=== PATIENT | female | born 1980 | race Asian ===

== ENCOUNTER 2016-12-05 07:30 | Inpatient (IN) | payer OTHER ==
[2016-12-05 09:02] VITALS: BMI 33.5
[2016-12-05] MEDS ORDERED: TUBERCULIN PPD 5 TU/0.1ML SYRINGE (IN PATIENT USE ONLY) ID ONE (10:00)
[2016-12-05] MEDS ORDERED: oxyCODONE HCL 5 MG TABLET PO PRN (10:12)
[2016-12-05] MEDS ORDERED: METHYLERGONOVINE MALEATE 0.2 MG/1 ML AMP IM PRN (10:12)
[2016-12-05] MEDS ORDERED: OXYTOCIN 20 UNITS in 0.9% NS 1,000 ML IV SCH (10:15)
[2016-12-05] MEDS ORDERED: ELECTROLYTE-148 SOLN 1,000 ML IV SCH (10:15)
--- NOTE | 2016-12-05 10:30 | HP ---
Past Medical History - Admission Chief Complaint: Previous Section x 3 History of Present Illness: 36 yo EDC 11/26 EGA 39 weeks for repeat Section and tubal sterilization History Source: Patient - Past Medical History ...: 4 ...Para: 3 ...Term: 3 ...: 0 ...Spon : 0 ...Induced : 0 ...Multiple Gestation: 0 ...LMP: 03/29/16 ... Weeks Gestation by Dates: 35.5 ...EDC by Dates: 01/03/17 ...EDC by Sono: 12/11/16 - Past Surgical History Past Surgical History: Yes: Hx Myomectomy: No Hx Transabdominal Cerclage: No - Smoking History Smoking history: Never smoked Have you smoked in the past 12 months: No - Alcohol/Substance Use Hx Alcohol Use: No History of Substance Use: reports: None - Social History Usual Living Arrangement: Yes: With Spouse History of Recent Travel: No Home Medications - Allergies Allergies/Adverse Reactions: Allergies Allergy/AdvReac Type Severity Reaction Status Date / Time No Known Allergies Allergy Verified 12/05/16 09:08 - Home Medications Home Medications: Ambulatory Orders Vit/Iron Fumarate/FA [ Tablet] 1 tab PO DAILY 12/05/16 Ibuprofen [Motrin -] 600 mg PO QID PRN #28 tablet 12/07/16 Review of Systems - Review of Systems Constitutional: reports: No Symptoms Eyes: reports: No Symptoms HENT: reports: No Symptoms Neck: reports: No Symptoms Cardiovascular: reports: No Symptoms Respiratory: reports: No Symptoms Gastrointestinal: reports: No Symptoms Genitourinary: reports: No Symptoms Breasts: reports: No Symptoms Reported Musculoskeletal: reports: No Symptoms Integumentary: reports: No Symptoms Neurological: reports: No Symptoms Endocrine: reports: No Symptoms Hematology/Lymphatic: reports: No Symptoms Psychiatric: reports: No Symptoms Physical Exam - Maternity Vital Signs: Vital Signs Temperature 98.2 F 12/05/16 07:30 Pulse Rate 78 12/05/16 07:30 Respiratory Rate 18 12/05/16 07:30 Blood Pressure 119/76 12/05/16 07:30 O2 Sat by Pulse Oximetry (%) Constitutional: Yes: Well Nourished, No Distress Cardiovascular: Yes: WNL, Regular Rate and Rhythm Lungs: Clear to auscultation Breast(s): Yes: WNL - Abdominal Exam/OB Fundal Height: 40 Number of Fetuses: Single Presentation: Vertex Contractions: No Monitor Mode: External Heart Rate (range): 150 Category: I Accelerations: Non-Uniform Decelerations: None - Vaginal Exam/OB Dilatation (cm): closed Amniotic Membrane Status: Intact Presentation: Vertex/Position - Physical Exam Musculoskeletal: Yes: WNL Extremities: Yes: WNL Edema: No Integumentary: Yes: WNL Psychiatric: Yes: WNL, Alert, Oriented Hemorrhage Risk Assessment - Risk Factors Medium Risk Factors: Yes: Prior , uterine surgery,or multiple laparotomies Risk Score: 1 Risk Level: Medium Risk Assessment/Plan Prev CS x 3 IUP at 39 week Voluntary Sterilization Plan Repeat bilateral salpingectomy
[2016-12-05] MEDS ORDERED: ONDANSETRON 4 MG/2 ML VIAL IVPUSH PRN (11:40)
[2016-12-05] MEDS ORDERED: morphine SULFATE/Preservative Free 0.5 MG/ML (1cc Syringe) SPIN ONE (11:40)
[2016-12-05] MEDS ORDERED: PROMETHAZINE HCL 25 MG/1 ML VIAL IVPUSH PRN (12:22)
[2016-12-05 12:23] LABS: ARTERIAL BLD GAS O2 SATURATION 42.3 % (90-98.9); ARTERIAL BLOOD GAS BASE EXCESS -0.5 meq/l (-2-2); ARTERIAL BLOOD GAS HCO3 26.4 meq/L (22-26); ARTERIAL BLOOD GAS PO2 22.1 mmHg (80-100); ARTERIAL BLOOD GAS pH 7.31 (7.35-7.45)
[2016-12-05 12:25] LABS: ON ANTICOAG? CORD BLOOD; TYPE OF O2 ROOM AIR 21%
[2016-12-05 12:27] LABS: PT'S TEMP ARTERIAL
[2016-12-05 12:28] LABS: VENOUS PH 7.38 (7.32-7.42)
[2016-12-05 12:29] LABS: VENOUS BLOOD GAS HCO3 23.4 meq/L (19-25)
--- NOTE | 2016-12-05 12:39 | OP ---
DATE OF OPERATION: 12/05/2016 PREOPERATIVE DIAGNOSES: 1. Previous section. 2. Intrauterine at 39 weeks. 3. Voluntary sterilization. POSTOPERATIVE DIAGNOSIS: Live female . OPERATION: Repeat section and bilateral salpingectomy. SURGEON: Rosalina Thurman MD [employer]IGHWAY TRUCK DRIVER: GRANT Medina ( unavailable) ANESTHESIOLOGIST: Faustino Hernández M.D. ANESTHESIA: Spinal. ESTIMATED BLOOD LOSS: 600 mL. FINDINGS: Live female delivered in OP position. Normal tubes and ovaries. DESCRIPTION OF PROCEDURE: The patient was taken to the operating room, placed in the supine position, prepped and draped in the usual sterile fashion. A time-out was performed in accordance with hospital regulation. A scalpel was then used to make a Pfannenstiel skin incision through the patient's previous scar. Cautery was then used to go through the layers of the abdominal wall to the level of the fascia. The fascia was cut in the midline and cautery was then used to open the fascia in a smiling fashion. Jesus was then used to bluntly and sharply dissect the rectus muscle and the fascia. The muscle was splint in the midline. The peritoneal cavity was then entered and carried upward and downward. A bladder retractor was then placed. The vesicouterine reflection was then entered. The bladder was bluntly dissected out of the operative field. A scalpel was then used to make a low transverse uterine incision. The incision was carried upwards using bandage scissors. A live female infant was delivered in OT position. Nose and mouth suction was performed. The shoulders were delivered without difficulty. The cord was clamped and cut. Cord blood obtained. The placenta was manually extracted from the uterus. The uterus was exteriorized and cleaned with clean lap pads. The uterine incision was then closed using 0 Biosyn suture, the first layer continuous interlocking and the second layer imbricating the first layer. Hemostasis was achieved. The tubes were bilaterally grasped with Babcocks and LigaSure was then used to perform a salpingectomy. The ovaries were noted to be normal. The tube specimens were submitted to Pathology. The uterus was interiorized. The abdominal cavity was cleaned with clean lap pads. After abdominal sweep done, the peritoneum was closed using 0 Biosyn suture. The muscle was approximated in the midline using 0 Biosyn suture. The fascia was then closed using 0 Vicryl suture in 2 parts. The subcutaneous was closed using interrupted 0 Biosyn suture. The skin was then closed using 3-0 Vicryl in subcuticular fashion. The wound was washed and dressed. The patient tolerated the procedure well and was taken to the recovery room in stable condition. Usha [id number]
--- NOTE | 2016-12-05 18:33 | OP ---
Operative Note - Note: Operative Date: 12/05/16 Pre-Operative Diagnosis: prev CS x 3. voluntary sterilization Operation: Repeat Section. bilateral salpingectomy Findings: Live femaleinfant Post-Operative Diagnosis: Same as Pre-op Surgeon: Rosalina Thurman Firmware Architect: Jered Dickinson Anesthesiologist/BUSINESS FUNCTIONAL ANALYST: Faustino Hernández Anesthesia: Spinal Estimated Blood Loss (mls): 600 Operative Report Dictated: Yes
[2016-12-05] MEDS: SIMETHICONE 80 MG TAB.CHEW (FP) PO PRN (21:03)
[2016-12-06] MEDS: IBUPROFEN 600 MG TABLET (FP) PO PRN ×4 (00:34→20:39)
[2016-12-06] MEDS: ACETAMINOPHEN 325 MG TABLET (FP) PO PRN (00:35)
--- NOTE | 2016-12-06 06:45 | PN ---
Progress Note (SOAP) - Subjective Chief Complaint: Pt doing well - Current Medications Current Medications: Active Medications Acetaminophen (Tylenol -) 650 mg PO Q4H PRN PRN Reason: FEVER OR PAIN Last Admin: 12/06/16 00:35 Dose: 650 mg Bisacodyl (Dulcolax Suppository -) 10 mg RC PRN PRN PRN Reason: CONSTIPATION Diphenhydramine HCl (Benadryl Injection -) 25 mg IVPUSH Q4H PRN PRN Reason: Pruritis Enoxaparin Sodium (Lovenox -) 40 mg SQ DAILY [facility] Parenteral Electrolytes (Plasma-Lyte 148 -) 1,000 mls @ 125 mls/hr IV ASDIR MOOSE Last Admin: 12/05/16 08:00 Dose: 125 mls/hr Oxytocin/Sodium Chloride (Normal Saline+20 Units Oxytocin -) 1,000 mls @ 125 mls/hr IV ASDIR MOOSE Last Admin: 12/05/16 12:54 Dose: 125 mls/hr Ibuprofen (Motrin -) 600 mg PO Q4H PRN PRN Reason: PAIN Last Admin: 12/06/16 00:34 Dose: 600 mg Methylergonovine Maleate (Methergine Injection -) 0.2 mg IM Q4H PRN PRN Reason: Excessive Bleeding (L&D) Oxycodone HCl (Roxicodone -) 5 mg PO Q4H PRN PRN Reason: PAIN LEVEL 1-5 Oxycodone HCl (Roxicodone -) 10 mg PO Q4H PRN PRN Reason: PAIN LEVEL 6-10 Promethazine HCl (Phenergan Injection -) 12.5 mg IVPUSH Q4H PRN PRN Reason: NAUSEA AND/OR VOMITING Last Admin: 12/05/16 13:08 Dose: 12.5 mg Simethicone (Mylicon -) 80 mg PO Q4H PRN PRN Reason: GAS Last Admin: 12/05/16 21:03 Dose: 80 mg - Objective Vital Signs: Vital Signs Temperature 97.8 F 12/06/16 05:00 Pulse Rate 69 12/06/16 05:00 Respiratory Rate 18 12/06/16 06:00 Blood Pressure 96/53 12/06/16 05:00 O2 Sat by Pulse Oximetry (%) 98 12/05/16 21:00 Constitutional: Yes: Well Nourished, No Distress Gastrointestinal: Yes: WNL ....Post : Yes: Uterus firm, Uterus non-tender Edema: No Wound/Incision: Yes: Clean/Dry, Well Approximated, Steri Strips, Open to air Problem List - Problems (1) delivery delivered Code(s): O82 - ENCOUNTER FOR DELIVERY WITHOUT INDICATION Assessment/Plan pod 1 stable Plan oob percocet
--- NOTE | 2016-12-06 08:30 | PN ---
Progress Note (short form) - Note Progress Note: Post op day#1.S/P C Section under spinal anesthesia with duramorph uneventful.Patient stable and c/p lttle pain for which she is on medication.No any anesthesia related problem.Patient DC from the anesthesia care.
[2016-12-06] MEDS: SIMETHICONE 80 MG TAB.CHEW (FP) PO PRN ×3 (09:13→20:38)
[2016-12-06] MEDS: oxyCODONE HCL 5 MG TABLET PO PRN ×3 (09:13→20:38)
[2016-12-06] MEDS: ENOXAPARIN NA (PORCINE) 40 MG/0.4 ML DISP.SYRIN SQ SCH (09:15)
[2016-12-06 09:41] LABS: BASOPHIL 0.2 % (0-2.0); EOSINOPHIL 0.4 % (0-4.5); MCH 32.2 pg (25.7-33.7); MCHC 34.2 g/dl (32.0-36.0); MEAN CELL VOLUME 94.2 fl (80-96); MEAN PLT VOLUME 9.3 fl (7.5-11.1); NEUTROPHILS 85.8 % (42.8-82.8); PLATELET COUNT 147 K/MM3 (134-434); RDW 14.3 % (11.6-15.6); WHITE BLOOD COUNT 11.6 K/mm3 (4.0-10.0)
[2016-12-06] MEDS ORDERED: BISACODYL 10 MG SUPP.RECT RC PRN (10:12)
[2016-12-07] MEDS: SIMETHICONE 80 MG TAB.CHEW (FP) PO PRN ×4 (05:53→22:07)
[2016-12-07] MEDS: oxyCODONE HCL 5 MG TABLET PO PRN ×2 (05:53→12:14)
[2016-12-07] MEDS: ACETAMINOPHEN 325 MG TABLET (FP) PO PRN ×3 (05:54→22:07)
[2016-12-07] MEDS: IBUPROFEN 600 MG TABLET (FP) PO PRN ×4 (05:55→22:09)
--- NOTE | 2016-12-07 08:18 | PN ---
Post Progress Note - Subjective Subjective: PPD 2 Type of Delivery: Repeat C/S Vital Signs: Vital Signs Temperature 99.0 F 12/06/16 22:00 Pulse Rate 85 12/06/16 22:00 Respiratory Rate 20 12/06/16 22:00 Blood Pressure 116/65 12/06/16 22:00 O2 Sat by Pulse Oximetry (%) 98 12/05/16 21:00 Breast Exam: Yes: Soft Uterus: Yes: Fundus Firm Incision: Yes: Dressing dry and intact Abdomen/GI: Yes: Abdomen soft Lochia: Yes: Rubra Lochia, amount: Moderate Extremities: Yes: Calves non-tender Activity: Ambulating - Labs Labs: CBC WBC 11.6 K/mm3 (4.0-10.0) H D 12/06/16 09:25 RBC 3.27 M/mm3 (3.60-5.2) L 12/06/16 09:25 Hgb 10.5 GM/dL (10.7-15.3) L D 12/06/16 09:25 Hct 30.8 % (32.4-45.2) L 12/06/16 09:25 MCV 94.2 fl (80-96) 12/06/16 09:25 MCH 32.2 pg (25.7-33.7) 12/06/16 09:25 MCHC 34.2 g/dl (32.0-36.0) 12/06/16 09:25 RDW 14.3 % (11.6-15.6) 12/06/16 09:25 Plt Count 147 K/MM3 (134-434) 12/06/16 09:25 MPV 9.3 fl (7.5-11.1) 12/06/16 09:25 Neutrophils % 85.8 % (42.8-82.8) H D 12/06/16 09:25 Lymphocytes % 8.8 % (8-40) D 12/06/16 09:25 Monocytes % 4.8 % (3.8-10.2) 12/06/16 09:25 Eosinophils % 0.4 % (0-4.5) 12/06/16 09:25 Basophils % 0.2 % (0-2.0) 12/06/16 09:25 Assessment/Plan s/p c/s POD 2 condition stable continue post op care
[2016-12-07] MEDS: ENOXAPARIN NA (PORCINE) 40 MG/0.4 ML DISP.SYRIN SQ SCH (09:50)
[2016-12-08] MEDS ORDERED: SENNOSIDES/DOCUSATE COMBO (SENNA PLUS) TABLET (UD) PO PRN (07:10)
[2016-12-08 09:14] LABS: BASOPHIL 0.4 % (0-2.0); EOSINOPHIL 1.9 % (0-4.5); MCH 32.3 pg (25.7-33.7); MCHC 33.9 g/dl (32.0-36.0); MEAN CELL VOLUME 95.4 fl (80-96); MEAN PLT VOLUME 9.3 fl (7.5-11.1); PLATELET COUNT 164 K/MM3 (134-434); RDW 14.4 % (11.6-15.6); WHITE BLOOD COUNT 6.3 K/mm3 (4.0-10.0)
[2016-12-08] MEDS: ENOXAPARIN NA (PORCINE) 40 MG/0.4 ML DISP.SYRIN SQ SCH (09:31)
[2016-12-08] MEDS: ACETAMINOPHEN 325 MG TABLET (FP) PO PRN ×2 (09:31→20:31)
[2016-12-08] MEDS: IBUPROFEN 600 MG TABLET (FP) PO PRN ×2 (09:32→20:30)
[2016-12-08] MEDS: SIMETHICONE 80 MG TAB.CHEW (FP) PO PRN ×2 (09:33→20:29)
--- NOTE | 2016-12-08 11:19 | PN ---
Progress Note (SOAP) - Subjective Chief Complaint: Pt doing well - Current Medications Current Medications: Active Medications Acetaminophen (Tylenol -) 650 mg PO Q4H PRN PRN Reason: FEVER OR PAIN Last Admin: 12/08/16 09:31 Dose: 650 mg Bisacodyl (Dulcolax Suppository -) 10 mg RC PRN PRN PRN Reason: CONSTIPATION Diphenhydramine HCl (Benadryl Injection -) 25 mg IVPUSH Q4H PRN PRN Reason: Pruritis Enoxaparin Sodium (Lovenox -) 40 mg SQ DAILY MOOSE Last Admin: 12/08/16 09:31 Dose: 40 mg Ibuprofen (Motrin -) 600 mg PO Q4H PRN PRN Reason: PAIN Last Admin: 12/08/16 09:32 Dose: 600 mg Methylergonovine Maleate (Methergine Injection -) 0.2 mg IM Q4H PRN PRN Reason: Excessive Bleeding (L&D) Promethazine HCl (Phenergan Injection -) 12.5 mg IVPUSH Q4H PRN PRN Reason: NAUSEA AND/OR VOMITING Last Admin: 12/05/16 13:08 Dose: 12.5 mg Senna/Docusate Sodium (Pericolace -) 2 tablet PO HS PRN Simethicone (Mylicon -) 80 mg PO Q4H PRN PRN Reason: GAS Last Admin: 12/08/16 09:33 Dose: 80 mg - Objective Vital Signs: Vital Signs Temperature 97.5 F L 12/08/16 08:59 Pulse Rate 61 12/08/16 08:59 Respiratory Rate 20 12/08/16 08:59 Blood Pressure 121/70 12/08/16 08:59 O2 Sat by Pulse Oximetry (%) 98 12/05/16 21:00 Constitutional: Yes: Well Nourished, No Distress Neck: Yes: WNL Cardiovascular: Yes: WNL Respiratory: Yes: WNL Gastrointestinal: Yes: WNL, Soft, Abdomen, Obese ....Post : Yes: Uterus firm, Uterus non-tender Edema: Yes Edema: LLE: 1+, RLE: 1+ Wound/Incision: Yes: Clean/Dry, Well Approximated, Steri Strips, Open to air Psychiatric: Yes: WNL, Alert, Oriented Labs Lab Results: CBC, BMP 12/08/16 08:25 Problem List - Problems (1) delivery delivered Code(s): O82 - ENCOUNTER FOR DELIVERY WITHOUT INDICATION Assessment/Plan pod 3 stable Plan oob percocet
[2016-12-09 08:27] VITALS: BP 133/79; PULSE 65; TEMP 98.3
[2016-12-09] MEDS: SIMETHICONE 80 MG TAB.CHEW (FP) PO PRN (09:07)
[2016-12-09] MEDS: ACETAMINOPHEN 325 MG TABLET (FP) PO PRN (09:07)
[2016-12-09] MEDS: IBUPROFEN 600 MG TABLET (FP) PO PRN (09:08)
[2016-12-09] MEDS: ENOXAPARIN NA (PORCINE) 40 MG/0.4 ML DISP.SYRIN SQ SCH (09:09)
--- NOTE | 2016-12-09 18:37 | PATH ---
Surgical Pathology Report Patient Name: BARBARA NGUYEN [place]. Rec. 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 Specimen(s) Received A: PLACENTA B: RIGHT FALLOPIAN TUBE C: LEFT FALLOPIAN TUBE Clinical History section x3 Repeat with bilateral salpingectomy Final Diagnosis A. PLACENTA, SECTION: 530 g THIRD TRIMESTER PLACENTA WITH MILD ACUTE SUBCHORIONITIS AND TRIVASCULAR UMBILICAL CORD. B. FALLOPIAN TUBE, RIGHT, EXCISION: FALLOPIAN TUBE (INCLUDING LUMINAL PORTION) WITH PARATUBAL CYST. C. FALLOPIAN TUBE, LEFT, EXCISION: UNREMARKABLE FALLOPIAN TUBE (INCLUDING LUMINAL PORTION). Electronically Signed Betty De Guzman M.D. Gross Description A. The specimen is received fresh labeled placenta and is a 530 gram, 18 x 14 x 2.8 cm. placenta with attached membranes and umbilical cord. The attached membranes are glistening and translucent and insert marginally. The umbilical cord measures 19 cm. in length and averages 1.5 cm. in diameter. The cord inserts eccentrically, 5 cm. to the nearest margin. No true knots or strictures are identified. Cut surface of the umbilical cord reveals 3 vessels. The surface is montanez-blue with minimal fibrin deposition and appropriate caliber vessels. The maternal surface is red-brown with focal defects. Sectioning reveals red-brown, spongy parenchyma. No lesions are identified. Hospice Care Consultant sections are submitted in three cassettes as follows: 1- membrane rolls and umbilical cord; 2-3- full thickness sections of placenta. B. Received fresh labelled "right fallopian tube" is a 9.5 cm long by 0.5 cm in diameter portion of tissue consistent with a portion of fallopian tube. The fimbriated end is present. A 0.8 cm greatest dimension clear fluid filled cyst is present at the fimbriated end. No focal lesions are identified. Hospice Care Consultant sections are submitted in one cassette. C. Received fresh labelled "left fallopian tube" is a 8.7 cm long by 0.5 cm in diameter portion of tissue consistent with a portion of fallopian tube. The fimbriated end is present. No focal lesions are identified. Hospice Care Consultant sections are submitted in one cassette. [facility]/12/06/2016
== END 2016-12-09 12:40 | disposition home or self-care (01) | DRG 766 ==
LOC: JLDR 07:30 → J3W 15:01
PROVIDERS: ADMIT Obstetrics & Gynecology; ATTEND Obstetrics & Gynecology
PROC: 10D00Z1 Extraction of Products of Conception, Low, Open Approach (ICD-10-PCS; principal; 2016-12-05)
PROC: 0UT70ZZ Resection of Bilateral Fallopian Tubes, Open Approach (ICD-10-PCS; 2016-12-05)
DX: O34.211 Maternal care for low transverse scar from previous cesarean delivery (principal); Z3A.39 39 weeks gestation of pregnancy; Z37.0 Single live birth; Z30.2 Encounter for sterilization
CPT/HCPCS: 36415; 36600; 82803; 85025; 88302-TC; 88307-TC